=== PATIENT | male | born 1975 | race Caucasian/White ===

== ENCOUNTER → 2016-11-03 | Outpatient (CLI) | payer OTHER | END | disposition disaster alternative care site (69) | LOC: GDIC 10:52 | DX: E11.65 Type 2 diabetes mellitus with hyperglycemia (principal); Z71.3 Dietary counseling and surveillance | CPT/HCPCS: G0108 ==

== ENCOUNTER → 2016-11-10 | Outpatient (CLI) | payer OTHER | END | disposition disaster alternative care site (69) | LOC: GNUT 15:29 | DX: E11.65 Type 2 diabetes mellitus with hyperglycemia (principal) ==